=== PATIENT | male | born 1965 | race Two or more races ===

== ENCOUNTER 2020-03-08 05:16 | Emergency (ER) | payer OTHER ==
[~2020-03-08] VITALS: Ht 177.8 cm; Wt 72.6 kg
[2020-03-08 07:14] LABS: Basophils # (auto) 0 10 ^3/uL (0-0.2); Basophils % (auto) 0.3 % (0.0-2.0); Eosinophils # (auto) 0.1 10 ^3/uL (0-0.8); Eosinophils % (auto) 0.6 % (0.0-7.0); Lymphocytes # (auto) 0.9 10 ^3/uL (0.4-5.4); Lymphocytes % (auto) 10.5 % (10.0-50.0); Mean Corpuscular Hemoglobin 29.9 pg (28.0-32.0); Mean Corpuscular Hgb Conc. 34.1 g/dL (32.0-36.0); Mean Corpuscular Volume 87.7 fL (80.0-100.0); Monocytes # (auto) 0.4 10 ^3/uL (0-1.3); Neutrophils # (auto) 7.5 10 ^3/uL (1.6-8.6); Neutrophils % (auto) 84.6 % (37.0-80.0); Nucleated Red Blood Cells % 0.1 %; Platelet Count (auto) 268 10^3/uL (140-450); Red Blood Cells 4.68 10^6/uL (4.5-5.90); Red Cell Distribution Width 13.3 % (11.8-14.3); White Blood Cell 8.8 10^3/uL (4.4-10.8)
[2020-03-08] MEDS ORDERED: HYDROcodone-ACET 10/325MG TAB PO ONE (07:30)
[2020-03-08 07:35] LABS: INR 1.06 (0.9-1.15); Partial Thromboplastin Time 26.2 sec (23.64-32.05)
[2020-03-08 07:37] LABS: Albumin 3.5 g/dL (3.4-5.0); Calcium 8.3 mg/dL (8.5-10.1); Potassium 3.9 mmol/L (3.5-5.1)
[2020-03-08 07:52] LABS: Bilirubin, Total 0.6 mg/dL (0.2-1.0)
[2020-03-08] MEDS ORDERED: SODIUM CHLORIDE 0.9% 1,000 ML IV ONE (09:30)
[2020-03-08 11:27] VITALS: BP 110/75
== END 2020-03-08 07:39 | disposition short-term general hospital (02) ==
LOC: EDBD 05:16 → ER 05:16
DX: R04.0 Epistaxis (principal); Q27.39 Arteriovenous malformation, other site; I95.0 Idiopathic hypotension
CPT/HCPCS: 30901; 36415; 71045; 80053; 85025; 85610; 85730; 96360; 99291; J7030

== ENCOUNTER 2020-03-23 12:33 | Emergency (ER) | payer OTHER ==
[~2020-03-23] VITALS: Ht 180.3 cm; Wt 68.0 kg
[2020-03-23 13:53] LABS: Basophils # (auto) 0 10 ^3/uL (0-0.2); Basophils % (auto) 0.4 % (0.0-2.0); Eosinophils # (auto) 0 10 ^3/uL (0-0.8); Eosinophils % (auto) 0.2 % (0.0-7.0); Hematocrit 37.6 % (41.0-53.0); Hemoglobin 12.6 g/dL (13.5-17.5); Lymphocytes # (auto) 0.8 10 ^3/uL (0.4-5.4); Lymphocytes % (auto) 6.5 % (10.0-50.0); Mean Corpuscular Hemoglobin 29.6 pg (28.0-32.0); Mean Corpuscular Hgb Conc. 33.4 g/dL (32.0-36.0); Mean Corpuscular Volume 88.5 fL (80.0-100.0); Monocytes # (auto) 0.3 10 ^3/uL (0-1.3); Monocytes % (auto) 2.9 % (0.0-12.0); Neutrophils # (auto) 10.5 10 ^3/uL (1.6-8.6); Platelet Count (auto) 446 10^3/uL (140-450); Red Blood Cells 4.25 10^6/uL (4.5-5.90); White Blood Cell 11.6 10^3/uL (4.4-10.8)
[2020-03-23 14:07] LABS: INR 1.08 (0.9-1.15)
[2020-03-23 14:11] LABS: Albumin 3.3 g/dL (3.4-5.0); Calcium 8.3 mg/dL (8.5-10.1); Potassium 3.4 mmol/L (3.5-5.1)
[2020-03-23 14:13] LABS: BUN/Creatinine Ratio 34.7
[2020-03-23 14:16] LABS: Bilirubin, Total 0.6 mg/dL (0.2-1.0)
[2020-03-23 15:30] VITALS: BP 111/73
== END 2020-03-23 16:42 | disposition home or self-care (01) ==
LOC: ER 12:33 → EDBD 12:33 → ER 16:42
DX: I78.0 Hereditary hemorrhagic telangiectasia (principal)
CPT/HCPCS: 30901; 36415; 80053; 85025; 85610; 85730

== ENCOUNTER 2020-05-22 07:30 | Emergency (ER) | payer OTHER ==
[~2020-05-22] VITALS: Ht 175.3 cm; Wt 72.6 kg
[2020-05-22 09:06] LABS: Basophils # (auto) 0.1 10 ^3/uL (0-0.2); Basophils % (auto) 0.4 % (0.0-2.0); Eosinophils # (auto) 0 10 ^3/uL (0-0.8); Eosinophils % (auto) 0.3 % (0.0-7.0); Hematocrit 45.4 % (41.0-53.0); Lymphocytes # (auto) 1.1 10 ^3/uL (0.4-5.4); Mean Corpuscular Hemoglobin 28.3 pg (28.0-32.0); Mean Corpuscular Hgb Conc. 33.1 g/dL (32.0-36.0); Mean Corpuscular Volume 85.6 fL (80.0-100.0); Monocytes # (auto) 0.6 10 ^3/uL (0-1.3); Monocytes % (auto) 3.6 % (0.0-12.0); Neutrophils # (auto) 13.7 10 ^3/uL (1.6-8.6); Neutrophils % (auto) 88.7 % (37.0-80.0); Nucleated Red Blood Cells % 0.1 %; Platelet Count (auto) 347 10^3/uL (140-450); Red Cell Distribution Width 13.3 % (11.8-14.3); White Blood Cell 15.5 10^3/uL (4.4-10.8)
[2020-05-22 09:20] LABS: INR 1.03 (0.9-1.15)
[2020-05-22] MEDS ORDERED: ONDANSETRON ODT 4 MG TAB PO ONE (12:00)
[2020-05-22] MEDS ORDERED: SODIUM CHLORIDE 0.9% 1,000 ML IV ONE (12:15)
[2020-05-22 18:04] VITALS: BP 114/79
== END 2020-05-22 18:34 | disposition home or self-care (01) ==
LOC: EDBD 07:30 → ER 07:30
DX: R04.0 Epistaxis (principal); I78.0 Hereditary hemorrhagic telangiectasia
CPT/HCPCS: 30905; 36415; 85025; 85610; 85730; 96360; 99285; J7030; Q0162; 30901; 96361